=== PATIENT | female | born 1955 | race Caucasian/White ===

== ENCOUNTER 2018-02-21 10:38 | Day surgery (SDC) | payer BC ==
[~2018-02-21 10:38] MED LIST: Acetaminophen TAB* 325 MG PO PRN; Buffered Lidocaine 0.9% SYRIN* 5 ML/SYR SYRINGE INTRADERM ONE
[2018-02-21] MEDS ORDERED: Midazolam* 1 MG/ML 2 ML VIAL (2 MG) ONE ×2 (13:01→13:17)
[2018-02-21 13:32] VITALS: BP 107/63
[2018-02-21] MEDS ORDERED: Proparacaine 0.5% OPHTH.SOL* 15 ML BTL ONE (14:48)
[2018-02-21] MEDS ORDERED: Ketorolac 0.5% OPHTH (NF) 0.5 % 5 ML BTL ONE (14:48)
[2018-02-21] MEDS ORDERED: Phenylephrine 2.5% OPTH.SOL* 2 ML BTL ONE (14:48)
[2018-02-21] MEDS ORDERED: acetaZOLAMIDE TAB* 250 MG ONE (14:48)
[2018-02-21] MEDS ORDERED: Lidocaine 2% EPI 1:200000 MPF*10-20 ML VIAL ONE (14:48)
[2018-02-21] MEDS ORDERED: Cyclopentolate 1% OPTH.SOL* 2 ML BTL ONE (14:48)
[2018-02-21] MEDS ORDERED: Neomycin/Polymy/Dex OPTH.SUSP* MAXITROL 0.1% 5 ML ONE (14:48)
[2018-02-21] MEDS ORDERED: Povidone Iodine 5% OPTH* 30 ML BTL ONE (14:48)
[2018-02-21] MEDS ORDERED: Lidocaine 1%* 5 ML VIAL ONE (14:48)
--- NOTE | 2018-02-22 06:54 | OP ---
DATE OF OPERATION: 02/21/18 [facility] DATE OF : 59 SURGEON: Scott Marie MD PREOPERATIVE DIAGNOSIS: Cataract, left eye. POSTOPERATIVE DIAGNOSIS: Cataract, left eye. OPERATIVE PROCEDURE: Extracapsular cataract extraction with intraocular lens implant, left eye. DESCRIPTION OF PROCEDURE: The patient was brought to the operating room after being given 1/2% Alcaine with epinephrine drops in the preoperative area. The eye was prepped and draped in the usual sterile fashion. Sterile drape and eyelid speculum were placed. Again, topical 1/2% Alcaine with epinephrine was given. A paracentesis incision was made at the 3 o'clock position with the No.75 blade. Clear cornea incision 2.2 x 2.2-mm was created at the 6 o'clock position starting at the anterior limbus using the 2.2-mm keratome. The anterior chamber was irrigated with 0.4 mL of 1% non-preservative intracameral lidocaine and filled with DisCoVisc. A capsulorrhexis was completed using the cystotome and the Utrata forceps. Hydrodissection was performed with balanced salt solution. The lens nucleus was removed with the Phacoemulsification handpiece without incident. Cortex was removed with the irrigation-aspiration handpiece. The capsular bag was re-inflated using DisCoVisc and an SN60WF 19.5 implant was inserted with the shooter. The irrigation-aspiration handpiece was used to remove all residual DisCoVisc. The eye was refilled with balanced salt solution and the wound checked and found to be watertight. Topical Maxitrol drops were given. [id number]/[facility] #: [id number] [facility]
== END 2018-02-21 13:34 | disposition home or self-care (01) ==
LOC: OREAST 10:38
PROVIDERS: ATTEND Specialist
DX: H25.812 Combined forms of age-related cataract, left eye (principal); H43.811 Vitreous degeneration, right eye; J45.909 Unspecified asthma, uncomplicated; M06.9 Rheumatoid arthritis, unspecified
CPT/HCPCS: A9270-GY; J2250; V2632

== ENCOUNTER 2018-02-28 08:14 | Day surgery (SDC) | payer BC ==
[2018-02-28] MEDS ORDERED: Midazolam* 1 MG/ML 2 ML VIAL (2 MG) ONE ×2 (10:40→10:49)
[2018-02-28] MEDS ORDERED: Proparacaine 0.5% OPHTH.SOL* 15 ML BTL ONE (10:56)
[2018-02-28] MEDS ORDERED: Phenylephrine 2.5% OPTH.SOL* 2 ML BTL ONE (10:56)
[2018-02-28] MEDS ORDERED: Lidocaine 1%* 5 ML VIAL ONE (10:56)
[2018-02-28] MEDS ORDERED: Lidocaine 2% EPI 1:200000 MPF*10-20 ML VIAL ONE (10:56)
[2018-02-28] MEDS ORDERED: Neomycin/Polymy/Dex OPTH.SUSP* MAXITROL 0.1% 5 ML ONE (10:56)
[2018-02-28] MEDS ORDERED: Povidone Iodine 5% OPTH* 30 ML BTL ONE (10:56)
[2018-02-28] MEDS ORDERED: acetaZOLAMIDE TAB* 250 MG ONE (10:56)
[2018-02-28] MEDS ORDERED: Ketorolac 0.5% OPHTH (NF) 0.5 % 5 ML BTL ONE (10:56)
[2018-02-28] MEDS ORDERED: Cyclopentolate 1% OPTH.SOL* 2 ML BTL ONE (10:56)
[2018-02-28 11:10] VITALS: BP 109/71
--- NOTE | 2018-02-28 11:48 | OP ---
OPERATIVE NOTE: DATE OF OPERATION: 02/28/18 DATE OF : 59 SURGEON: Scott Marie M.D. PREOPERATIVE DIAGNOSIS: Cataract, right eye. POSTOPERATIVE DIAGNOSIS: Cataract, right eye. OPERATIVE PROCEDURE: Extracapsular cataract extraction with intraocular lens implant, right eye. PROCEDURE: The patient was brought to the operating room after being given 1/2% Alcaine with epineph rine drops in the preoperative area. The eye was prepped and draped in the usual sterile fashion. S terile drape and eyelid speculum were placed. Again, topical 1/2% Alcaine with epinephrine was given . A paracentesis incision was made at the 9 o'clock position with the No.75 blade. Clear cornea inc ision 2.2 x 2.2-mm was created at the 12 o'clock position starting at the anterior limbus using the 2 .2-mm keratome. The anterior chamber was irrigated with 0.4 mL of 1% non-preservative intracameral l idocaine and filled with DisCoVisc. A capsulorrhexis was completed using the cystotome and the Utrat a forceps. Hydrodissection was performed with balanced salt solution. The lens nucleus was removed w ith the Phacoemulsification handpiece without incident. Cortex was removed with the irrigation-aspir ation handpiece. The capsular bag was re-inflated using DisCoVisc and an SN60WF 19 implant was inser aleksander with the shooter. The irrigation-aspiration handpiece was used to remove all residual DisCoVisc. The eye was refilled with balanced salt solution and the wound checked and found to be watertight. Topical Maxitrol drops were given. [id number]/[facility] #: [id number]
== END 2018-02-28 11:12 | disposition home or self-care (01) ==
LOC: OREAST 08:14
PROVIDERS: ATTEND Specialist
DX: H25.811 Combined forms of age-related cataract, right eye (principal); H01.021 Squamous blepharitis right upper eyelid; H01.024 Squamous blepharitis left upper eyelid; H01.022 Squamous blepharitis right lower eyelid; H01.025 Squamous blepharitis left lower eyelid; J45.909 Unspecified asthma, uncomplicated; M06.9 Rheumatoid arthritis, unspecified
CPT/HCPCS: A9270-GY; J2250; V2632

== ENCOUNTER 2022-04-03 21:05 | Observation (INO) ==
[2022-04-03] MEDS ORDERED: Lactated Ringers 1000 ml BAG 1,000 ML IV ONE ×2 (21:37→22:35)
[2022-04-03] MEDS ORDERED: Ondansetron 4 mg VIAL 2 MG/ML 2 ml VIAL IV ONE (21:38)
[2022-04-03 22:09] LABS: ABS Lymphocytes 1.1 10^3/ul (1.0-4.8); ABS Monocytes 0.7 10^3/ul (0-0.8); ABS Neutrophils 10.2 10^3/ul (1.5-7.7); Eosinophil % 0.1 %; Hematocrit 41 % (35-47); Hemoglobin 13.7 g/dL (12.0-16.0); Mean Corpuscular HGB Conc 34 g/dL (31-36); Mean Corpuscular Hemoglobin 32 pg (27-31); Mean Corpuscular Volume 94 fL (80-97); Mean Platelet Volume 8.7 fL (7.4-10.4); Platelet Count 283 10^3/uL (150-450); Red Blood Count 4.35 10^6 /uL (3.70-4.87); Red Cell Distribution Width 13 % (10-15)
[2022-04-03 22:39] LABS: ALT 27 U/L (7-52); Albumin 4.7 g/dL (3.2-5.2); Alkaline Phosphatase 111 U/L (35-149); Blood Urea Nitrogen 19 mg/dL (6-24); C Reactive Protein < 1.00 mg/L (<8.01); CO2 Carbon Dioxide 18 mmol/L (22-32); Calcium 10.6 mg/dL (8.6-10.3); Chloride 98 mmol/L (101-111); Globulin 2.4 g/dL (2-4); Glucose 205 mg/dL (70-100); Lipase 31 U/L (11.0-82.0); Magnesium 1.9 mg/dL (1.9-2.7); Sodium 136 mmol/L (135-145); Total Protein 7.1 g/dL (6.4-8.9); eGFR CKD-EPI 62.9 (>60)
[2022-04-03 22:46] LABS: Anion Gap 20 mmol/L (2-11)
[2022-04-03] MEDS ORDERED: Iodixanol (CONTRAST) 320 MG/ML 100 ML SDV IV ONE (23:08)
[2022-04-04] MEDS ORDERED: HYDROmorphone 1 MG/1 ML SYRINGE IV SLOW PU PRN (01:15)
[2022-04-04] MEDS ORDERED: Ondansetron 4 mg VIAL 2 MG/ML 2 ml VIAL IV PRN (01:15)
[2022-04-04] MEDS ORDERED: Ondansetron 4 mg VIAL 2 MG/ML 2 ml VIAL IV ONE (01:18)
[2022-04-04 03:17] LABS: Urine Appearance Cloudy; Urine Bilirubin Negative (Negative); Urine Blood Negative (Negative); Urine Color Yellow; Urine Glucose Negative (Negative); Urine Ketones Negative (Negative); Urine Nitrite Negative (Negative); Urine Protein Negative (Negative); Urine Specific Gravity 1.029 (1.002-1.030); Urine Urobilinogen Negative (Negative)
[2022-04-04 06:28] LABS: ABS Lymphocytes 0.6 10^3/ul (1.0-4.8); ABS Monocytes 0.5 10^3/ul (0-0.8); ABS Neutrophils 8.1 10^3/ul (1.5-7.7); Hematocrit 35 % (35-47); Lymphocyte % 6.2 %; Mean Corpuscular HGB Conc 34 g/dL (31-36); Mean Corpuscular Hemoglobin 32 pg (27-31); Mean Corpuscular Volume 94 fL (80-97); Mean Platelet Volume 8.3 fL (7.4-10.4); Platelet Count 207 10^3/uL (150-450); Red Blood Count 3.75 10^6 /uL (3.70-4.87); Red Cell Distribution Width 13 % (10-15); White Blood Count 9.2 10^3/uL (3.5-10.8)
[2022-04-04] MEDS: Lactated Ringers 1000 ml BAG 1,000 ML IV SCH ×2 (06:38→19:30)
[2022-04-04 07:05] LABS: eGFR CKD-EPI 83.5 (>60)
[2022-04-04] MEDS: Acetaminophen IV 1 GM/100ML 1,000 MG/100 ML BAG IV PRN (12:40)
[2022-04-04] MEDS: CMCS: Cyclosporine 0.05% OPHTH (NF) 0.4 ML VIAL BOTH EYES SCH ×2 (12:43→20:02)
[2022-04-04] MEDS: Fluticasone NASAL SPRAY 50MCG 16 gm SPRAY BTL INTRANASAL SCH (12:44)
[2022-04-05] MEDS: Lactated Ringers 1000 ml BAG 1,000 ML IV SCH (04:08)
[2022-04-05] MEDS: Acetaminophen IV 1 GM/100ML 1,000 MG/100 ML BAG IV PRN (05:10)
[2022-04-05] MEDS: Fluticasone NASAL SPRAY 50MCG 16 gm SPRAY BTL INTRANASAL SCH (08:39)
[2022-04-05 09:29] LABS: ABS Lymphocytes 0.8 10^3/ul (1.0-4.8); ABS Monocytes 0.5 10^3/ul (0-0.8); ABS Neutrophils 5.7 10^3/ul (1.5-7.7); Eosinophil % 0.5 %; Hematocrit 36 % (35-47); Hemoglobin 11.9 g/dL (12.0-16.0); Mean Corpuscular HGB Conc 33 g/dL (31-36); Mean Corpuscular Hemoglobin 32 pg (27-31); Mean Corpuscular Volume 95 fL (80-97); Mean Platelet Volume 8.8 fL (7.4-10.4); Platelet Count 179 10^3/uL (150-450); Red Blood Count 3.74 10^6 /uL (3.70-4.87); Red Cell Distribution Width 13 % (10-15); White Blood Count 6.9 10^3/uL (3.5-10.8)
[2022-04-05 09:48] LABS: Calcium 8.4 mg/dL (8.6-10.3); Potassium 3.9 mmol/L (3.5-5.0); eGFR CKD-EPI 88.8 (>60)
[2022-04-05] MEDS: CMCS: Cyclosporine 0.05% OPHTH (NF) 0.4 ML VIAL BOTH EYES SCH (10:12)
[2022-04-05 10:54] VITALS: BP 150/68
== END 2022-04-05 15:26 | disposition home or self-care (01) ==
LOC: EDHOLD 21:05 → ED 21:05 → SSU 04-04 09:58
PROVIDERS: ADMIT Surgery Surgical Critical Care; ATTEND Surgery Surgical Critical Care